=== PATIENT | female | born 1930 | race Caucasian/White ===

== ENCOUNTER → 2017-09-07 | Outpatient (CLI) | payer OTHER ==
[~2017-09-07] MED LIST: AMT10 PO; ASCA500 PO; ATEN-173 PO; B-COCAP2 PO; CALC-51 PO; ESTR0.5T3 PO; LECIGRA PO; LEVO25TA PO; LISI-725 PO; MISC8TAB PO; MULT-513 PO; PRLSR20 PO; VITAMIN E PO; [UNRECOGNIZED DRUG - SUPPLY] VAGRING
== END | disposition home or self-care (01) ==
LOC: C.LABSPEC 16:05
PROVIDERS: ATTEND Obstetrics & Gynecology
DX: R39.9 Unspecified symptoms and signs involving the genitourinary system (principal)